=== PATIENT | female | born 1955 ===

== ENCOUNTER 2018-05-28 14:12 | Emergency (ER) | payer OTHER ==
[2018-05-28 14:19] VITALS: RESP 18
[2018-05-28] MEDS ORDERED: Naproxen 550 mg Tab PO STA (14:53)
[2018-05-28] MEDS ORDERED: Naproxen 550 mg Tab PO ONE (15:02)
[2018-05-28 15:38] VITALS: BP 109/71; PULSE 76; TEMP 97.2; O2SAT 99
--- NOTE | 2018-05-28 15:53 | C.PDOC ---
History Of Present Illness 62 year old female, whose past medical history includes hypertension, presents to the ED for evaluation of headache which began today. Patient states she has not been taking her Hypertension medication. She has been checking her blood pressure at home, and has noticed it has been high over the past 2-3 days. Patient took some aspirin, and has also been taking Benadryl for her allergies. She denies fever, chills, vision change, nausea, vomiting, extremity numbness/weakness. Time Seen by Provider: 05/28/18 14:31 Chief Complaint (Nursing): High Blood Pressure History Per: Patient History/Exam Limitations: no limitations Onset/Duration Of Symptoms: Days Current Symptoms Are (Timing): Better Associated Symptoms: Headache. denies: Focal Weakness Exacerbating Factor(s): Pos: Recently Missed Doses Of Medication Additional History Per: Patient Past Medical History Reviewed: Historical Data, Nursing Documentation, Vital Signs Vital Signs: Last Vital Signs Temp 97.2 F L 05/28/18 15:37 Pulse 76 05/28/18 15:37 Resp 18 05/28/18 15:37 BP 109/71 05/28/18 15:37 Pulse Ox 99 05/28/18 15:37 - Medical History PMH: HTN, Hypercholesterolemia Surgical History: No Surg Hx Family History: States: Unknown Family Hx - Social History Hx Alcohol Use: Yes Hx Substance Use: No - Immunization History Hx Tetanus Toxoid Vaccination: No Hx Influenza Vaccination: No Hx Pneumococcal Vaccination: No Review Of Systems Eyes: Negative for: Vision Change Neurological: Positive for: Headache. Negative for: Weakness, Numbness Physical Exam - Physical Exam Appears: Non-toxic, No Acute Distress Skin: Normal Color, Warm, Dry Head: Atraumatic, Normacephalic Eye(s): bilateral: Normal Inspection Ear(s): Bilateral: Normal Nose: Normal, No Discharge Oral Mucosa: Moist Throat: Normal, No Erythema, No Exudate Neck: Supple Chest: Symmetrical, No Deformity, No Tenderness Cardiovascular: Rhythm Regular, No Murmur Respiratory: Normal Breath Sounds, No Rales, No Rhonchi, No Wheezing Extremity: Normal ROM, Capillary Refill (less than 2 seconds ) Neurological/Psych: Oriented x3, Normal Speech, Normal Cognition ED Course And Treatment O2 Sat by Pulse Oximetry: 99 (on RA) Pulse Ox Interpretation: Normal Medical Decision Making Medical Decision Making: Progress: Reglan PO and Naproxen PO given. Disposition - Disposition Referrals: [facility] [Outside] [facility] [Outside] Disposition: HOME/ ROUTINE Disposition Time: 15:56 Condition: GOOD Additional Instructions: Follow up with the medical doctor within 1-2 days. Return if worsened. La presin arterial es normal hoy. Verifique la presin cada maana y antela en un papel para mostrar al mdico. Prescriptions: Metoclopramide [Reglan] 1 tab PO TID PRN #25 tab PRN Reason: Headache Instructions: High Blood Pressure in Adults, Headache, Adult (DC) Forms: [employer] (Lao) Print Language: TELUGU - Clinical Impression Clinical Impression: Normal blood pressure, Headache - PA / EFFICIENCY MANAGER / Resident Statement MD/DO has reviewed & agrees with the documentation as recorded. - Scribe Statement The provider has reviewed the documentation as recorded by the Scribe (Arcelia Pineda) All medical record entries made by the Scribe were at my direction and personally dictated by me. I have reviewed the chart and agree that the record accurately reflects my personal performance of the history, physical exam, medical decision making, and the department course for this patient. I have also personally directed, reviewed, and agree with the discharge instructions and disposition.
== END 2018-05-28 16:06 | disposition home or self-care (01) ==
LOC: C.ER 14:12
DX: R51 Headache (principal); E78.00 Pure hypercholesterolemia, unspecified